=== PATIENT | female | born 1930 | race Caucasian/White ===

== ENCOUNTER 2016-06-04 11:28 | Outpatient (CLI) | payer OTHER | END 2016-06-04 11:30 | LOC: POD 11:28 | PROVIDERS: ATTEND Podiatrist Public Medicine | DX: E11.9 Type 2 diabetes mellitus without complications (principal); B35.1 Tinea unguium; L60.0 Ingrowing nail; M79.674 Pain in right toe(s); M79.675 Pain in left toe(s) ==

== ENCOUNTER 2016-10-08 10:41 | Outpatient (CLI) | payer OTHER | END 2016-10-08 10:42 | LOC: POD 10:41 | PROVIDERS: ATTEND Podiatrist Public Medicine | DX: B35.1 Tinea unguium (principal); L60.0 Ingrowing nail; M79.675 Pain in left toe(s); M79.674 Pain in right toe(s); E11.9 Type 2 diabetes mellitus without complications; M20.42 Other hammer toe(s) (acquired), left foot; M20.41 Other hammer toe(s) (acquired), right foot | CPT/HCPCS: 11721; G0463 ==

== ENCOUNTER 2017-05-13 10:43 | Outpatient (CLI) | payer OTHER | END 2017-05-13 10:44 | LOC: POD 10:43 | PROVIDERS: ATTEND Podiatrist Public Medicine | DX: E11.9 Type 2 diabetes mellitus without complications (principal); B35.1 Tinea unguium; L60.0 Ingrowing nail; M79.674 Pain in right toe(s); M79.675 Pain in left toe(s); M20.41 Other hammer toe(s) (acquired), right foot; M20.42 Other hammer toe(s) (acquired), left foot | CPT/HCPCS: 11721; G0463 ==

== ENCOUNTER 2017-08-26 10:59 | Outpatient (CLI) | payer OTHER | END 2017-08-26 11:00 | LOC: POD 10:59 | PROVIDERS: ATTEND Podiatrist Public Medicine | DX: E11.9 Type 2 diabetes mellitus without complications (principal); B35.1 Tinea unguium; L60.0 Ingrowing nail; M79.674 Pain in right toe(s); M79.675 Pain in left toe(s); M20.41 Other hammer toe(s) (acquired), right foot; M20.42 Other hammer toe(s) (acquired), left foot | CPT/HCPCS: 11721; G0463 ==

== ENCOUNTER 2017-10-30 09:18 | Outpatient (CLI) | payer OTHER ==
[2017-10-30 09:53] LABS: MEAN CORPUSCULAR HEMOGLOBIN 31.5 pg (28.0-34.0); MEAN CORPUSCULAR VOLUME 102.5 fl (80.0-100.0)
[2017-10-30 10:09] LABS: eGFR (African) > 60; eGFR (Non-African) 41
== END 2017-10-30 09:20 ==
LOC: LAB 09:18
PROVIDERS: ATTEND Internal Medicine Cardiovascular Disease
DX: I25.10 Atherosclerotic heart disease of native coronary artery without angina pectoris (principal)
CPT/HCPCS: 36415; 80053; 80061; 82306; 83036; 84443; 85027

== ENCOUNTER 2017-11-09 11:39 | Outpatient (CLI) | payer OTHER ==
[2017-11-09 12:01] LABS: BASOPHILS % 0.3 (0.0-1.5); EOSINOPHILS % 1.8 % (0.0-6.8); MEAN CORPUSCULAR HEMOGLOBIN 30.5 pg (28.0-34.0); MEAN CORPUSCULAR VOLUME 101.3 fl (80.0-100.0); NEUTROPHILS # 3.1 # k/uL (1.4-7.7)
--- NOTE | 2017-11-09 15:57 | Diagnostic Imaging Report ---
AVILA IVORY [facility] [address] [facility].[address] [address] Report Submission Date: Nov 09, 2017 2:23:53 PM CDT Patient Study Name: PRASAD QUEEN Date: Nov 09, 2017 1:16:46 PM CDT Modality Type: DX Gender: F Description: CHEST : [birth year] Institution: [facility] Physician: AVILA IVOYR Examination: PA and lateral chest. History: Evaluate lung rogers. ATHEROSCLEROTIC HEART DISEASE OF [place] CORONARY; LEFT SIDE CHEST PAIN (Hx) Comparison exam: None provided. Findings: PA and lateral views of the chest demonstrates a normal cardiac and mediastinal silhouette. Tortuous aorta with vascular calcifications involving the aortic arch. Chronic interstitial changes. No focal infiltrate. No blunting of the costophrenic margins. Generalized osteopenia. Shoulder degenerative changes. Right shoulder fixation hardware. Numerous mid and lower thoracic vertebral body kyphoplasty. Impression: Emphysematous changes/parenchymal scarring. No focal infiltrative process. Electronically signed on Nov 09, 2017 2:23:53 PM CDT by: Speedy MAK
--- NOTE | 2017-11-09 15:58 | Diagnostic Imaging Report ---
AVILA LAILAFERNANDO [facility] [address] [facility] [address] [place] [address]. [id number] Report Submission Date: Nov 09, 2017 2:31:21 PM CDT Patient Study Name: PRASAD QUEEN Date: Nov 09, 2017 1:36:27 PM CDT Modality Type: CT\SR Gender: F Description: CT PE CHEST : [birth year] Institution: [facility] Physician: AVILA IVORY Examination: CT chest pulmonary embolism History: ATHEROSCLEROTIC HEART DISEASE OF [place] CORONARY; LEFT SIDE CHEST PAIN (Hx) Comparison exam: Plain film chest dated 09 November 2017 Technique: CT chest pulmonic pulmonary embolism protocol. Findings: No evidence for luminal filling defect within the main pulmonary arteries to the 3rd order branch vessels bilaterally. Thoracic aorta without aneurysmal dilation. No evidence for dissection flap. Extensive peripheral atherosclerotic disease and mural thickening. Tortuosity near the diaphragm. Lungs demonstrate dependent atelectasis and scaring bilaterally. Posterior pleural thickening without pleural effusion. Within the posterior margin of the right upper lung is a soft tissue density measuring 1.9 cm diameter. No mediastinal or william mass or pathologic adenopathy. Cardiac silhouette not enlarged. No pericardial effusion. Osseous structures demonstrate degenerative changes. Generalized osteopenia and multiple kyphoplasty. Anterior compression involving mid and lower thoracic vertebral bodies. Lower neck structures, axilla regions, and upper abdominal organs are without gross irregularity. Impression: No evidence for pulmonary embolism by CT criteria. No evidence for thoracic aortic dissection. 1.9 cm right upper lung soft tissue lesion concerning for neoplasia. Pulmonary consultation recommended. Lung base atelectasis/scarring. Pleural thickening without effusion. Electronically signed on Nov 09, 2017 2:31:21 PM CDT by: Speedy MAK
== END 2017-11-09 11:40 ==
LOC: RAD 11:39
PROVIDERS: ATTEND Internal Medicine Cardiovascular Disease
DX: I10 Essential (primary) hypertension (principal); I25.10 Atherosclerotic heart disease of native coronary artery without angina pectoris; R07.89 Other chest pain
CPT/HCPCS: 36415; 71046; 71275; 85025; Q9967